=== PATIENT | female | born 1975 | race Caucasian/White ===

== ENCOUNTER 2024-12-13 00:28 | Day surgery (SDC) | payer MEDICARE, OTHER, SELFPAY ==
--- NOTE | 2024-12-08 14:30 | PM.IMHP ---
H&P: HPI History of Present Illness Date/Time: 12/08/24 14:30 Chief Complaint: incontinence Narrative: neurogenic bladder Review of Systems Review of Systems: All systems reviewed & are unremarkable except as noted in HPI and below Exam Narrative: limited mobility Assessment and Plan Assessment and plan (1) Uninhibited neurogenic bladder: Code(s): N31.9 - Neuromuscular dysfunction of bladder, unspecified Status: Acute Assessment and Plan: cysto/botox 100u (2) Reflex neurogenic bladder: Code(s): N31.1 - Reflex neuropathic bladder, not elsewhere classified Status: Acute
[2024-12-09 12:51] VITALS: BMI 33.4
--- NOTE | 2024-12-09 15:36 | PC.NURSE ---
[facility] has started construction of its new state of the art ER which will open Spring 2026. With this, we anticipate parking may be a challenge for some our surgical patients and families. Parking spaces are limited but are available for all Surgical, obstetrics, and ER patients sharing this lot. If you arrive and find you are having a hard time finding a parking space, please note that we understand the challenges, please drive around the hospital and park near Hospital Entrance 1. When you enter this entrance, you can ask a volunteer to direct or take you back to the surgical waiting area to check in. We appreciate everyone?s understanding of these expected challenges while we build for your future. Report to the Outpatient Waiting Room, entrance under the green pavilion [address], at time _10:15 AM on date ___12/13/24____. Planned Procedure Time: ___11:15 AM .? Time changes happen often and if your time is changed the preop area will call you the afternoon before. - You and your visitor will be asked to self-screen and do not enter if you have any COVID symptoms. Please call surgeon if you need to reschedule. - A mask is optional within the hospital at this time. MAY HAVE LIGHT BREAKFAST MORNING OF SURGERY Take only the following medications with a SIP of water on the morning of surgery: __ALL ROUTINE MEDICATIONS DO NOT STOP ANY OF YOUR OTHER PRESCRIPTION MEDICATIONS PRIOR TO SURGERY EXCEPT THE FOLLOWING Medications to discontinue per physician NONE Date to take last dose Please no make-up, nail citizen of the [place], hairspray, perfume, deodorant, or body powder the day of surgery.? No jewelry (including any body piercings) or valuables the day of surgery, leave them at home.? Please take a shower or bath the night before, or the morning of, surgery with an antibacterial soap.? Wear comfortable, loose fitting clothing.? Children are encouraged to wear pajamas. - Jewelry must be removed prior to entering the operating room.? Rings and piercings that are not removed may be cut off. - The hospital will not accept responsibility for valuables.? - Please leave all valuables, including medications, at home the day of surgery. If you are going home after surgery, a licensed class a regional truck driver must drive you home.? - NO public transportation without another adult if you receive anesthesia. - We recommend that an adult stay with you for 24 hours following discharge. - We also recommend that you do not drive, make important decision, drink alcoholic beverages, or take any drugs that were not prescribed by your health care provider for at least 24 hours after your discharge time. Follow any additional instructions given to you from your surgeon. FAXED instructions given to [facility] and asked if any additional questions and then verbalized understanding. Patient advised to call surgeon office or pre surgery nurse liaison [phone] if any additional questions.
--- OUTSIDE RECORDS SUMMARY | 2024-12-13 00:45 | XMS_ITS | Encounter Summary ---
Author Organization [facility] Address [address] [place] [address] Phone Care Team Providers Care Prestidigitator Name Role Phone Alejandro Desouza MD Primary Care Provider [phone] Dima Campo MD Unavailable David Rapp MD Unavailable Encounter Details Date Type Department Care Team (Late st Contact Info) Description 03/03/2023 Nursing Facility [facility] [address] [place] [address] Cl Tracy MD [address] [place] [address] Social History Tobacco Use Types Packs/Day Years Used Date Smoking Tobacco: Never Assessed Comments No Sex and Gender Information Value Date Recorded Sex Assigned at Not on file Legal Sex Female 4:47 PM CDT Gender Identity Not on file Sexual Orientation Not on file documented as of this encounter Plan of Treatment Not on file documented as of this encounter Visit Diagnoses Not on filedocumented in this encounter Care Teams Prestidigitator Relationship Specialty Start Date End Date Alejandro Desouza MD [address] [place] [address] PCP - General Family Medicine 06/07/22 Dima Campo MD #[address] [address] Consulting Physician Colon and Rectal Surgery 02/02/24 David Rapp MD [address] [place] [address] Consulting Physician Pulmonary Disease 04/23/24 documented as of this encounter
--- OUTSIDE RECORDS SUMMARY | 2024-12-13 00:45 | XMS_ITS | Encounter Summary ---
Author Organization [facility] Facility Care Team Providers Care Frit Coater Name Role Phone Vish Scott MD Primary Care Provider [phone] Mik Brown MD PhD Unavailable [phone] Ricardo Raymundo MD Unavailable [phone] Rufino Shaw MD Unavailable + [phone] Anisa Schaefer SUEDING AND BUFFING MACHINE OPERATOR Primary Care Provider [phone] Rika Lala MD Unavailable + [phone] Gatito Jones IMPORTER OR EXPORTER Unavailable Unavailabl Martha Donohue SUEDING AND BUFFING MACHINE OPERATOR Unavailable Dionne Dillon DPT Unavail able Florence Bryant RN Unavailable [phone] Keri Vila MA Unavailable [phone] Bala White MD Unavailable [phone] Rita Junior Unavailable [phone] Alejandro Desouza MD Primary Care Provider [phone] Tami Key MD, Silvio Thornton Unavailable [phone] Boliavr Meadows MD Primary Care Provider + [phone] Encounter Details Date Type Department Care Team (Latest Contact Info) Description 08/01/2017 Orders Only [facility] Provider, MD Francis [address] [place] [address] Social History Tobacco Use Types Packs/Day Years Used Date Smoking Tobacco: Never Smokeless Tobacco: Never Comments Unknown Sex and Gender Information Value Date Recorded Sex Assigned at Not on file Legal Sex Female 6:20 AM SNOWMOBILE MECHANIC Gender Identity Female 11/26/2019 8:57 AM CDT Sexual Orientation Straight 11/26/2019 8: 57 AM CDT documented as of this encounter Plan of Treatment Not on file documented as of this encounter Procedures Procedure Name Priority Date/Time Associated Diagnosis Comments SCAN - PATHOLOGY 08/01/2017 12:0 0 AM CDT documented in this encounter Results * SCAN - PATHOLOGY (08/01/2017 12:00 AM CDT) Narrative 08/01/2017 12:00 AM CDT Ordered by an unspecified provider. Historical Provider Final Res ult documented in this encounter Visit Diagnoses Not on filedocumented in this encounter Additional Health Concerns Infection Onset Date Last Indicated Resolved Time COVID: Recovered Comment:Patient meets COVID recovered criteria. Original positive testing date 11/20/19 at an outside facility. CHLOÉ Campbell 11/20/2019 02/13/2020 1 3:06 AM SNOWMOBILE MECHANIC COVID: Suspected 01/25/2020 01/25/2020 01/25/2020 10:50 PM SNOWMOBILE MECHANIC Respiratory Infection (ANTHONY), contact + droplet Comment:Automatically added due to negative COVID-19 result. 01/25/2020 01/25/2020 01/27/2020 10: 10 AM SNOWMOBILE MECHANIC COVID: Suspected 02/12/2020 02/12/2020 02/12/2020 11:04 AM SNOWMOBILE MECHANIC COVID19 Comment:Dr. Barclay, infectious disease specialist, believes positive resulted on 02/12/20 is still remaining from 11/20/19 positive and advises patient can be cleared from COVID isolation at this time. 02/12/2020 02/12/2020 02/13/2020 12:30 PM SNOWMOBILE MECHANIC COVID: Recovered Comment:Added based on recent COVID infection. 02/13/2020 03/27/2020 06/12/2020 3:05 AM C DT documented as of this encounter Care Teams Frit Coater Relationship Specialty Start Date End Date Vish Scott MD [address] [facility] [address] [place] [address] PCP - General 04/26/17 12/06/17 Anisa Schaefer NP [address] [facility] [address] [place] [address] PCP - General Family Medicine 12/07/17 01/24/19 Alejandro Desouza MD [address] [place] [address] PCP - General Internal Medicine 05/18/21 12/25/23 Bolivar Meadows MD [address] [place] [address] PCP - General Internal Medicine 12/26/23 Mik Brown MD PhD [address] [address] Referring Physician Neurology 12/07/17 Ricardo Raymundo MD [address] [place] [address] Referring Physician Neurology 12/07/17 Rufino Shaw MD [address] [place] [address] Referring Physician Pulmonary Disease 12/07/17 Rika Lala MD [address] [address] Referring Physician Obstetrics and Gynecology 12/07/17 Gatito Jones, IMPORTER OR EXPORTER [address] [address] Undercar Specialist 12/08/17 12/19/17 Martha Reed, SUEDING AND BUFFING MACHINE OPERATOR [address] [place] [address] [address] [place], [place] [address], [place] [address] Obstetrics and Gynecology 01/25/19 Dionne Dillon, PATT [address] [place] [address] [address] [facility] [place] [address] Physical Therapist Physical Therapy 07/25/19 08/21/19 Florence Bryant, JAMIL [address] [place] [address] [address] [place] [address] Financial Reporting Accountant 09/29/19 10/23/19 Keri Vila MA [address] [place] [address] [address] [place] [address] ACO Care Bad Work Gatherer 11/26/19 12/11/19 Bala White MD [address] [place] [address] [address] [place] [address] Consulting Physician Urology 12/04/19 Rita Junior [address] [place] [address] [address] [place] [address] ACO Care Bad Work Gatherer 02/21/20 03/05/20 [place] [address] [place] [address] Surgeon Orthopedic Surgery 03/31/22 documented as of this encounter
--- OUTSIDE RECORDS SUMMARY | 2024-12-13 00:45 | XMS_ITS | Encounter Summary ---
Author Organization [facility] Address [address] [place] [address] Phone Care Team Providers Care Financial Solutions Advisor Name Role Phone Alejandro Desouza MD Primary Care Provider [phone] Dima Campo MD Unavailable David Rapp MD Unavailable Encounter Details Date Type Department Care Team (Late st Contact Info) Description 10/28/2022 Nursing Facility [facility] [address] [place] [address] Cl Tracy MD [address] [place] [address] Social History Tobacco Use Types [...] on filedocumented in this encounter Care Teams Financial Solutions Advisor Relationship Specialty Start Date End Date Alejandro Desouza MD [address] [place] [address] PCP - General Family Medicine 06/07/22 Dima Campo MD #[address] [address] Consulting Physician Colon and Rectal Surgery 02/02/24 David Rapp MD [address] [place] [address] Consulting Physician Pulmonary Disease 04/23/24 documented as of this encounter
--- OUTSIDE RECORDS SUMMARY | 2024-12-13 00:45 | XMS_ITS | Encounter Summary ---
Author Organization [facility] Address [address] [place] [address] Phone Care Team Providers Care Editor City Name Role Phone Alejandro Weeks MD Primary Care Provider [phone] Dima Campo MD Unavailable David Rapp MD Unavailable Encounter Details Date Type Department Care Team (Late st Contact Info) Description 07/14/2022 Nursing Facility [facility] [address] [place] [address] Cl Tracy MD [address] [place] [address] Social History Tobacco Use Types Packs/Day Years Used Date Smoking Tobacco: Never Assessed Comments No Sex and Gender Information Value Date Recorded Sex Assigned at Not on file Legal Sex Female 4:47 PM CDT Gender Identity Not on file Sexual Orientation Not on file documented as of this encounter H&P Notes * Cl Tracy MD - 07/14/2022 11:59 PM CDT [facility] History and Physical Chief Complaint: LTC, fall, Multiple Sclerosis HPI: Martha Saenz is a 46 yo female who is at [facility] for long-term care. She fell at the facility on 06/07 and went to [facility] ED. Patient says her legs gave out and she has BLE weakness associated with multiple sclerosis. She was found to have a distal fibular metaphyseal fracture with mild separation and her left foot was placed in a hard boot and she returned to the SNF. At the time of this assessment, the patient was tearful and expressed frustration regarding negative past experiences with several doctors, nurses, and other healthcare staff members. She complained of bilateral knee pain and reported good appetite and regular bowel movements. I tried to have a discussion with the patient to encourage her to get out of her bed and room and move around the facility more as the exercise would help her mobility and help manage her obesity and being out of her room would also help her mental health. The patient refused all suggestions of ways to spend time of of bed/her room. I had a discussion with SNF staff to see if they could encourage more activity but staff reported that they have already been doing so and patient adamantly refuses. Medical Records Reviewed: [facility] records Allergies: NKA Past Medical History: Multiple sclerosis, ADHD, hypothyroidism, hx of DVT, iron deficiency anemia, PNP, seizures Surgical History: Colposcopy, pilonidal cyst resection Social History: Never smoked. Denies use of alcohol and illicit drugs. Review of Systems: All systems reviewed and are negative except what is mentioned in HPI. Physical Exam: Vital Signs: All vitals were reviewed in the facility EMR and are stable. Exam: General: Well developed, well nourished, in no distress, morbidly obese, incontinent Skin: Normal appearance, normal turgor, no rashes HEENT: Normocephalic, atraumatic, no flaring, multiple loose teeth Eyes: nonicteric, intact extra occular movement, PERRL Neck: normal, supple, no lymphadenopathy Heart: regular rate and rhythm, S1, S2 normal, no murmur, click, rub or gallop Lungs: clear to ausculation, normal respirations, normal precautions Abdominal: soft, non-tender; bowel sounds normal; no masses, no organomegaly : external genitalia normal in appearance Extremities: no deformities, joint mobility appears intact, no clubbing, LLE in hard boot Neuro: Non-focal, CN intact, sensory and motor intact Psychological: alert and oriented X3, tearful, depressed affect, Intact judgement and memory Data Review: Lab Results: Labs from recent hospitalization have been reviewed and are stable. I ordered an updated CBC, CMP, and UA to be collected at the SNF. Assessment/Plan: 1. Fall, generalized weakness and decreased mobilization. The patient is to receive PT and OT at the SNF to improve strength, balance, and mobility back to baseline. She will remain here for long-term care. 2. Distal fibular metaphyseal fracture with mild separation. LLE is in a hard boot and is NWB and should be kept elevated. Ice at 20 minute intervals per ortho. Continue pain management with prn [place]. Follow-up with ortho. 3. Multiple sclerosis. Patient suffers from associated frequent falls, weakness, and poor mobilization. Patient is unable to care fore herself at home and will remain at the facility for long-term longterm care. Follows with [facility]. 4. Morbid Obesity. BMI 34.97. The patient has been encouraged to lose weight through a healthier diet and exercise and has been educated on the associated health benefits. Improvement is not expectedat this time as she is very resistant to making any lifestyle changes. 5. Vitamin D Deficiency. Continue supplementation. 6. Seizure disorder. No recent seizures noted. Continue Lamictal. 7. Microcytic anemia. Baseline Hgb around 8.0 - 9.0. Monitor CBC periodically and advise transfusion if Hgb drops below 7.0. Continue ferrous sulfate. 8. Hypothyroidism. Well-controlled. Continue levothyroxine. Check TSH levels periodically. 9. PNP. Well-controlled. Continue gabapentin. 10. Hx of DVT. Patient is on oral anticoagulation with Eliquis. VTE Prophylaxis: Patient Already on Oral Anticoagulation with Eliquis Disposition and escalation or reduction of care: The patient is to receive post- acute care and complete PT and OT at the SNF to improve strength, balance, and mobility and will remain at this facility as a long-term senior care resident. Advance Care Planning: Aggregate flut-yo-fyda time, greater than 16 minutes was spent discussing end-of-life care planning with patient/family and/or Power of Armoured Car Escort. Discussed CPR, Intubation, treatment goals, and Quality of life/Intensity of care. Patient desires CPR-Full Treatment Ankit Cuellar, acting as a scribe, am personally taking down the notes in the presence of Dr. Cl Tracy M.D. Take no action on this note until reviewed and authenticated by the physician. By: ANKIT PANG, 07/14/2022 Primary Care Physician: ALEJADNRO WEEKS MD . I evaluated and examined the patient in the presence of scribe Ankit Pang and discussed the physical findings and clinical assessment with her and reviewed the medical records and notes above and agree with the content and details of the note. Cl Tracy MD documented in this encounter Plan of Treatment Not on file documented as of this encounter Visit Diagnoses Not on filedocumented in this encounter Care Teams Editor City Relationship Specialty Start Date End Date Alejandro Weeks MD [address] [place] [address] PCP - General Family Medicine 06/07/22 Dima Campo MD #[address] [address] Consulting Physician Colon and Rectal Surgery 02/02/24 David Rapp MD [address] [place] [address] Consulting Physician Pulmonary Disease 04/23/24 documented as of this encounter
--- OUTSIDE RECORDS SUMMARY | 2024-12-13 00:46 | XMS_ITS | Clinical Summary ---
Author Organization [facility] Address [address] [place] [address] Care Team Providers Care Registered Diet Technician Name Role Phone Day, Mik Stubbs MD PhD Unavailable [phone] Ricardo Raymundo MD Unavailable [phone] Rufino Shaw MD Unavailable [phone] Rika Lala MD Unavailable [phone] Martha Reed SHOP HELPER Unavailable Bala White MD Unavailable [phone] Tami Key MD, Silvio TRyann Unavailable [phone] Bolivar Meadows MD Primary Care Provider [phone] Allergies Active Allergy Reactions Criticality Noted Date Comments Codeine Hives,Itching Medium 04/01/2014 Medications albuterol HFA (PROVENTIL HFA,VENTOLIN HFA,PROAIR HFA) 90 mcg/actuation inhaler Inhale 2 puffs nightly 0 Active levonorgestrel (MIRENA) IUDIndications: 2017 1 each by intrauterine route once Active cholecalciferol (VITAMIN D-3) 1,000 unit capsuleIndicati ons:unknown Take 1 capsule (1,000 Units total) by mouth daily Active montelukast (SINGULAIR) 10 mg tablet TAKE 1 TABLET(10 MG) BY MOUTH EVERY NIGHT 30 tablet 2 0 Active Additional Information Patient taking differently: 10 mg oral Nightly, Reported on 12/10/2024 tiZANidine (ZANAFLEX) 2 mg tablet Take 0.5 tablets (1 mg total) by mouth nightly as needed for muscle spasms 30 tablet 5 0 Active lamoTRIgine (LaMICtal) 150 mg tablet Take 1 tablet (150 mg total) by mouth 2 (two) times a day 60 tablet 11 0 Active baclofen (LIORESAL) 10 mg tablet Take 1 tablet (10 mg total) by mouth 3 (three) times a day Active ferrous sulfate 325 mg (65 mg of elemental iron) tabletIndicatio ns:Iron Deficiency Anemia Take 1 tablet (325 mg total) by mouth 2 (two) times a day Active apixaban (ELIQUIS) 5 mg tabletIndicatio ns:Venous Thrombosis,deep venous thrombosis Take 1 tablet (5 mg total) by mouth every 12 (twelve) hours 60 tablet 1 Active levothyroxine (SYNTHROID) 100 mcg tablet TAKE 1 TABLET(100 MCG) BY MOUTH DAILY 90 tablet 1 Active ofatumumab (Kesimpta Pen) 20 mg/0.4 mL pen injector Inject 20 mg under the skin every 30 (thirty) days Active Myrbetriq 25 mg tablet extended release 24 hr 2 Active PARoxetine (PAXIL) 20 mg tablet 2 Active triamcinolone (KENALOG) 0.1 % ointment Apply topically 2 (two) times a day 30 g 1 2 Active clonazePAM (KlonoPIN) 0.5 mg tablet Take 1 tablet (0.5 mg total) by mouth daily 30 tablet 2 2 Active pregabalin (Lyrica) 100 mg capsule Take 1 capsule (100 mg total) by mouth 2 (two) times a day 60 capsule 2 3 Active HYDROcodone-marguerite taminophen (NORCO) 5-325 mg per tablet 4 Active famotidine (PEPCID) 20 mg tablet 4 Active ciprofloxacin (CIPRO) 500 mg tablet 4 Active budesonide-form oteroL (SYMBICORT) 80-4.5 mcg/actuation inhaler Inhale 2 puffs 2 (two) times a day Rinse mouth with water after use. Do not swallow. Active oxyBUTYnin XL (DITROPAN-XL) 10 mg 24 hr tablet 4 Active loperamide (IMODIUM A-D) 2 mg tablet Take 1 tablet (2 mg total) by mouth 4 (four) times a day as needed for diarrhea Active polyethylene glycol (MIRALAX) 17 gram/dose bulk powder Take 17 g by mouth daily Active benzonatate (TESSALON) 200 mg capsule Take 1 capsule (200 mg total) by mouth 3 (three) times a day as needed for cough Active cetirizine (ZyrTEC) 10 mg chewable tablet Take 1 tablet (10 mg total) by mouth daily Active docusate sodium (COLACE) 100 mg capsuleIndicati ons:constipatio n Take 1 capsule (100 mg total) by mouth 2 (two) times a day Active guaiFENesin (ROBITUSSIN) syrup 100 mg/5 mL Take 10 mL (200 mg total) by mouth every 4 (four) hours as needed Active lidocaine (LIDODERM) 5 % Place 1 patch on the skin daily Active vitamin B complex (B COMPLEX 1 ORAL) Take 1 tablet by mouth daily Active ergocalciferol (VITAMIN D) 50,000 unit capsule Take 1 capsule (50,000 Units total) by mouth daily Active multivitamin tablet Take 1 tablet by mouth daily Active magnesium hydroxide (MILK OF MAGNESIA) suspension 400 mg/5 mL Take 30 mL by mouth daily as needed Active nystatin powder Apply 1 Application topically 3 (three) times a day Active naproxen (NAPROSYN) 500 mg tablet Take 1 tablet (500 mg total) by mouth 2 (two) times a day with meals 30 tablet 5 Active mupirocin (BACTROBAN) 2 % ointmentIndicat ions:Abscess Apply topically as needed (use to any area of infection PRN) 22 g 5 Active Active Problems Problem Noted Date Diagnosed Date Sprain of left knee 09/10/2024 Closed fracture of proximal end of right fibula with delayed healing 09/10/2024 Medication monitoring encounter 07/12/2024 History of COVID-19 07/12/2024 C5,6 Severe foraminal stenos is of cervical region 02/2023, asymptomatic 12/26/2023 Epilepsy 07/20/2023 Overview (07/20/2023): EPILEPSY W/O INTRACT EPILEPSY Bilateral leg edema 07/17/2023 Immunosuppression due to drug therapy 06/19/2022 Dysesthesia of multiple sites 06/19/2022 Closed fracture of part of tibia 06/19/2022 Other chronic pain 04/14/2022 Sacroiliitis 03/31/2022 Attention-deficit hyperactivity disorder, unspec ified type 02/21/2021 Hereditary ataxia, 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/2021 Major depressive disorder, single episode, unspe cified 02/21/2021 Other seizures 02/21/2021 Hypothyroidism, 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/2021 Anemia, 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/2021 Acute and chronic respiratory failure with hypox ia 02/21/2021 Obesity, 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/2021 Fever 02/03/2020 Hypoglycemia 02/02/2020 Hypophosphatemia 01/29/2020 Single subsegmental pulmonar y embolism without acute cor pulmonale 01/26/2020 Anemia 01/24/2020 Lymphocytopenia 01/24/2020 Pneumonia 01/23/2020 Right ankle sprain 11/19/2019 Assessment & Plan (12/04/2019 9:19 AM CDT): Continue PT and rehab at [facility]. Pt is working with social scientist and protective services on housing that is wheelchair accessible so she will be able to get her wheelchair into the bathroom and in turn, have less falls. If [facility] needs any further orders for PT or treatment, have them faxed to our office. Assessment & Plan (11/19/2019 1:32 AM CDT): Patient unable to bear weight at this time due to pain. No fracture noted on x- ray. Ortho was consulted. Continue p.r.n. Sh[place]. Will consult PT and OT. compensator worker was also consulted for placement. Will hold off on COVID screen until we have an ETA for discharge so as not to have to repeat the test if it is greater than 72 hours. Class 1 obesity due to exces s calories with serious comorbidity and body mass index (BMI) of 31.0 to 31.9 in adult 11/19/2019 Assessment & Plan (12/04/2019 8:36 AM CDT): HPI: Condition is stable A&P: Healthy, low carbohydrate lifestyle and exercise for 150min/week recommended Substitutions: [employer] carries a zero net carb bread If you are looking for whole potatoes, like to use in soup or new potato shape/flavor, radishes are a great replacement If you are looking for mashed potatoes, riced cauliflower in the frozen bag section are a great replacement For pasta, try using zucchini noodles, lay them out on a cookie sheet and pat dry with a tea towel to try to remove as much moisture as possible. Heat your pasta sauce on the stove and put the noodles in for 30-45 seconds. If you leave them in much longer they will become mushy [place] and/or coconut flour instead of regular flour For pizza dough, try fathead pizza dough recipe online. To get a crispy crust, bake on one side for 8-12 min, then flip over and bake on the other side for 8-12 min, then put toppings on and bake until the cheese on top of pizza melts chaffles recipe online For ice cream, try the brand Enlightened Use Pinterest for recipe ideas. Type in low carb... Mood disorder 10/01/2019 Wheelchair dependence 08/08/2019 Assessment & Plan (12/04/2019 9:20 AM CDT): Continue PT and rehab at [facility]. Pt is working with social scientist and protective services on housing that is wheelchair accessible so she will be able to get her wheelchair into the bathroom and in turn, have less falls. If [facility] needs any further orders for PT or treatment, have them faxed to our office. Assessment & Plan (11/19/2019 1:20 AM CDT): Patient otherwise has difficulty ambulating and frequently falls. Abnormal Pap smear of cervix 02/28/2019 Overview (04/10/2019): 06/2017: ASCUS, + HR HPV 07/2017: colpo wnl 02/2019: LSIL, - HR HPV 03/2019: colpo wnl Repeat co-testing in 12 m Acquired hypothyroidism 01/25/2019 Assessment & Plan (11/19/2019 1:23 AM CDT): Continue levothyroxine Assessment & Plan (01/25/2019 12:04 PM VENTILATING ENGINEER): Discussed/ordered labs, Condition is stable, encouraged healthy, low carbohydrate lifestyle and at least 150min/week of exercise, pt is completely out of levothyroxine at this time. We will refill the 100mcg and await labs Paraparesis 01/23/2019 Assessment & Plan (11/19/2019 1:21 AM CDT): Continue Lyrica Moderate persistent asthma without complication 10/16/2018 Assessment & Plan (11/19/2019 1:23 AM CDT): Continue Singulair and inhalers Assessment & Plan (01/25/2019 10:34 AM VENTILATING ENGINEER): Pt taking breo twice daily Uses albuterol as needed. She doesn't use it often. Please consider the albuterol as a rescue only medication. If needing the albuterol more than 2xwk, please contact office. Assessment & Plan (10/16/2018 2:12 PM CDT): Patient wants to switch from Advair to Breo because it is once a day . I will start her on Breo Ellipta. Continue with Singulair. Continue with p.r.n. Albuterol inhaler. Patient will benefit from albuterol nebulization treatments 4 times a day. He discussed with the patient and she agrees to use nebulization treatments at home. Will arrange for nebulization machine. Spasticity 05/24/2018 Assessment & Plan (11/19/2019 1:23 AM CDT): Continue baclofen and p.r.n. tizanidine Vitamin D deficiency 05/24/2018 Assessment & Plan (01/25/2019 10:40 AM VENTILATING ENGINEER): Discussed/ordered labs, Condition is worsening, encouraged healthy, low carbohydrate lifestyle and at least 150min/week of exercise, she has been off of vit d for quite a while-about 1 yr. She just bought some OTC vit d3 daily in the last month High risk medication use 05/24/2018 Abnormal MRI 05/24/2018 Recurrent UTI 04/13/2018 Assessment & Plan (11/19/2019 1:21 AM CDT): Continue nitrofurantoin Assessment & Plan (01/25/2019 10:41 AM VENTILATING ENGINEER): Please take the nitrofurantoin twice daily x 3 days, then take once daily every day for prevention Arthralgia of hip 03/28/2016 Memory impairment 12/16/2014 Neurogenic bladder disorder 08/19/2014 Mixed anxiety and depressive disorder 04/22/2014 Assessment & Plan (01/25/2019 10:45 AM VENTILATING ENGINEER): Pt taking cymbalta 60mg daily She doesn't have custody of children, both parents are gone, she has chronic illness. She has seen counselors but doesn't feel it helps She does not have suicidal thoughts Abnormality of gait and mobility 04/01/2014 Assessment & Plan (12/04/2019 9:20 AM CDT): Continue PT and rehab at [facility]. Pt is working with social scientist and protective services on housing that is wheelchair accessible so she will be able to get her wheelchair into the bathroom and in turn, have less falls. If [facility] needs any further orders for PT or treatment, have them faxed to our office. Chronic fatigue disorder 04/01/2014 Right-sided low back pain without sciatica 04/01 Generalized epilepsy 03/25/2014 Assessment & Plan (11/19/2019 1:23 AM CDT): Continue lamotrigine Assessment & Plan (01/25/2019 10:48 AM VENTILATING ENGINEER): Patient taking lamictal 100mg every morning and 150mg at bedtime Her seizures are more like tremors, seizures started in 2004 when she was having her daughter due to elevated BP She has a feeling in her head when it gets ready to start. Then she steps and her leg has tremor. The lamictal helps Multiple sclerosis 08/16/2011 Assessment & Plan (12/04/2019 9:20 AM CDT): Continue PT and rehab at [facility]. Pt is working with social scientist and protective services on housing that is wheelchair accessible so she will be able to get her wheelchair into the bathroom and in turn, have less falls. If [facility] needs any further orders for PT or treatment, have them faxed to our office. Keep follow up with neurology Assessment & Plan (11/19/2019 1:21 AM CDT): Patient follows with neurology at [facility] Assessment & Plan (01/25/2019 10:29 AM VENTILATING ENGINEER): Pt sees neurology. Patient has electric wheelchair that she uses at home. She uses manual wheelchair when she has to leave the house. She has excessive fatigue even with daily activities moving around. Pt uses baclofen 10mg two to three times daily, ocrevus twice a year, pregaalin 50mg twice daily, tizanidine 1mg at bedtime as needed, tramadol 50mg twice daily. She receives these meds from neurology. Rheumatoid arthritis Overview (01/24/2020): Rheumatoid arthritis - Possible (Added by TW Conv) Acute respiratory failure with hypoxia Resolved Problems Problem Noted Date Diagnosed Date Resolved Date Depressive disorder, atypical 04/14/2022 12/26/2023 Pressure injury of skin of buttock 03/10/2020 10/06/2020 Hyponatremia 01/24/2020 01/29/2020 Hypokalemia 01/24/2020 01/29/2020 Moderate persistent asthma w ith acute exacerbation 01/24/2020 10/06/2020 Falls frequently 08/08/2019 10/06/2020 Assessment & Plan (12/04/2019 9:19 AM CDT): Continue PT and rehab at [facility]. Pt is working with social scientist and protective services on housing that is wheelchair accessible so she will be able to get her wheelchair into the bathroom and in turn, have less falls. If [facility] needs any further orders for PT or treatment, have them faxed to our office. Assessment & Plan (11/19/2019 1:23 AM CDT): Up with assistance and fall precautions BMI 29.0-29.9,adult 01/25/2019 12/04/19 Assessment & Plan (01/25/2019 10:49 AM VENTILATING ENGINEER): Healthy, low carbohydrate lifestyle and exercise for 150min/week recommended Encounters Date Type Department Care Team Description 12/10/2024 9:50 AM CDT Lab [facility] [address] [place] [phone] Chronic fatigue disorder; Sacroiliitis; Recurrent UTI; Immunosuppression due to drug therapy; High risk medication use; Abnormality of gait and mobility 12/10/2024 8:15 AM CDT Office Visit [facility] Multiple Sclerosis [address] [place] [address] [address] [place] [address] Ricardo Raymundo MD Chronic fatigue disorder (Primary Dx); Sacroiliitis; Recurrent UTI; Immunosuppression due to drug therapy; High risk medication use; Abnormality of gait and mobility 11/06/2024 11:30 AM CDT Office Visit [facility] Surgery [address] [place] [address] 6th [place] [address] [place] [address] Dianne Townsend NP Abscess (Primary Dx) 10/03/2024 12:25 PM CDT - 10/03/2024 11:59 PM CDT Hospital Encounter [facility] [address] [place] [id number] Khushboo Jeffries MD Abscess Discharge Disposition: Discharge to home or self care 10/03/2024 12:15 PM CDT Office Visit [facility] Surgery [facility] 6th [place] [address] [place] [phone] Khushboo Jeffries MD Abscess (Primary Dx) 09/26/2024 11:10 AM CDT Office Visit [facility] [address] [facility] [address] [place] [phone] Erica Beaulieu DO Encounter for annual routine gynecological examination (Primary Dx); Encounter for routine checking of intrauterine contraceptive device (IUD) 09/21/2024 Results Follow-Up [facility] Emergency Department [address] [place] [address] Kailash Gardiner PA Aerobic culture and gram stain Abscess Finger 09/20/2024 Telephone [facility] [id number] Medical Office Building [address] [place] [address] Ansley Du MD 09/19/2024 8:45 PM CDT - 09/19/2024 11:59 PM CDT Hospital Encounter [facility] Emergency, Room R Discharge Disposition: Discharge to home or self care 09/19/2024 1:57 PM CDT - 09/19/2024 8:45 PM CDT Emergency [facility] Emergency Department [address] [place] [address] Abscess (Primary Dx) Discharge Disposition: Discharge to home or self care 09/17/2024 10:15 AM CDT [facility]medicine [facility] 7th [place] [phone] Angela Jon, TICKETER Multiple sclerosis (HCC) (Primary Dx); Immunosuppression due to drug therapy; High risk medication use; Medication monitoring encounter; Abnormal MRI; Spasticity; Abnormality of gait and mobility; Wheelchair dependence; Neurogenic bladder disorder; Chronic fatigue disorder; Generalized epilepsy (HCC); Mood disorder; History of COVID-19 from Last 3 Months Immunizations Immunization Administration Dates Next Due Flucelvax Influenza Quad 11/20/2018 Influenza, Quadrivalent, Berta l Culture-based MDCK, Antibiotic Free, Intramuscular 11/30/2022 Influenza, Quadrivalent, Berta l Culture-based MDCK, Preservative Free, Antibiotic Free, Intramuscular 11/20/2018,11/20/2018 Influenza, Quadrivalent, Spl it, Preservative Free, Intramuscular 11/22/2019 Influenza, Trivalent, Adjuva nted, Intramuscular 12/22/2023 Influenza, Unspecified 11/20/2018,2018,11/17/2017(Defer red: Patient Refused),11/17/2017(Deferred: Patient Refused),11/17/2017(Deferred: Patient Refused),11/17/2017(Deferred: Patient Refused),03/15/2016 Pneumococcal Conjugate Pcv20 11/16/2022 Tdap 10/25/2016,10/24/2016 Surgical History Surgery Date Site/Laterality Comments PILONIDAL CYST RESECTION Pilonidal Cyst Resection - (Added by TW Conv) COLPOSCOPY 02/13/2017 - 02/12/2018 Medical History Medical History Date Comments Personal history of other en docrine, nutritional and metabolic disease History of hypothyro idism - (Added by TW Conv) Personal history of other sp ecified conditions History of headache - migra ine that lasted 3 months, but does not have ongoing migraine headaches now, only occasional headaches with resolve with OTC pain meds (Added by TW Conv) Rheumatoid arthritis (HCC) Rheum atoid arthritis - Possible (Added by TW Conv) Attention-deficit hyperactivity disorder Attention-deficit/hyperactivity disorder - Probable (Added by TW Conv) Multiple sclerosis H/O abnormal cervical Papanicolaou smear 2017 = ASCUS, + HR HPV Breathing difficulty Incontinence Joint pain Cancer of skin of neck 2023 w 1 week of radiation History of radiation therapy 2023 ski n ca on back of neck Seizures (HCC) 2005 Depression Asthma 2016 Thyroid disease 2005 Anxiety Family History Medical History Relation Name Comments Arthritis Father Hussein Diabetes Father Hussein Heart attack Father Hussein Heart disease Father Hussein Neuropathy Father Hussein Alcohol abuse Father's Brother Chet Breast cancer Maternal Grandmother Fabienne Cancer Maternal Grandmother Fabienne Cancer Mother Wilda Heart attack Mother's Brother Gene Stroke Sister 1 Tyann Stroke Syndrome - (Added by TW Conv) Rashes / Skin problems Sister 2 Lynda Stroke Sister 3 Tiffanie Miscarriages / Stillbirths Sister 4 Tonya Ovarian cancer Neg Hx Thyroid cancer Neg Hx Relation Name Status Comments Father Hussein Father's Brother Chet Alive Maternal Grandmother Fabienne Mother Wilda Mother's Brother Gene Alive Sister 1 Tyann Sister 2 Lynda Alive Sister 3 Tiffanie Alive Sister 4 Tonya Alive Social History Tobacco Use Types Packs/Day Years Used Date Smoking Tobacco: Never Passive Smoke Exposure: Yes Smokeless Tobacco: Never Tobacco Cessation:Counseling Given: Not Answered Alcohol Use Standard Drinks/Week Comments No 0 (1 standard drink = 0.6 oz pur e alcohol) PHQ-2 Answer Date Recorded PHQ-2 Total Score (If total score is 3 or more points, staff should administer the PHQ-9) 0 01/28/2020 Personal Safety Answer Date Recorded Have you ever been in or are you currently in a harmful physical or emotional relationship or is someone making you feel afraid or unsafe? Denies 09/19/2024 Comments No Sex and Gender Information Value Date Recorded Sex Assigned at Not on file Legal Sex Female 6:20 AM VENTILATING ENGINEER Gender Identity Female 11/26/2019 8:57 AM CDT Sexual Orientation Straight 11/26/2019 8: 57 AM CDT Occupation Industry Job Start Date Job End Date None Not on file Not on file Not on file Obstetrics History Para Term AB IAB SAB Ectopic Multiple Livin g Live Births 2 2 2 0 0 0 0 0 0 2 2 Date Outcome GA Total Labor Labor/2nd/3rd Weight Sex Type Anes PTL Maria Isabel A1 A5 Name Clin 2004 Term 3.175 kg (7 lb) F Vag-S pont Living 2005 Term 3.629 kg (8 lb) M Vag-S pont Living Last Filed Vital Signs Vital Sign Reading Time Taken Comments Blood Pressure 119/80 12/10/2024 9:21 AM CDT Pulse 60 12/10/2024 9:21 AM CDT Temperature 37.1 C (98.8 F) 09/19/2024 1:56 PM CDT Respiratory Rate 18 09/19/2024 1:56 PM CDT Oxygen Saturation 97% 09/19/2024 4:15 PM CDT Inhaled Oxygen Concentration - - Weight 100.2 kg (221 lb) 12/10/2024 9:21 AM CDT Height 172.7 cm (5' 8) 12/10/2024 9:21 AM CDT Body Mass Index 33.6 12/10/2024 9:21 AM CDT Plan of Treatment Health Maintenance Due Date Last Done Comments Colon Cancer Screening-Colonoscopy 1976 Hepatitis C Screening 1976 Hepatitis B Screening 1994 Zoster Vaccine (1 of 2) 11/19/1995 Depression Screening 01/22/2021 01/23/2020, 2019, 03/08/2018, Additional history exists Cervical Cancer Screening 12/07/20232022, 12/06/2022, 04/13/2021, Additional history exists Covid-19 Vaccine (10 - Mixed Product risk season) 2024 12/22/2023, 12/15/2022, 06/24/2022, Additional history exists Influenza Vaccine (#1) 2024 , 11/30/2022, 11/22/2019, Additional history exists Breast Cancer Screening-Mammogram 08/27/2025 08/27/2024, 04/26/2022, 04/14/2021, Additional history exists Regular Well Visit/Exam 18-64 09/26/2025, 12/06/2022, 04/13/2021, Additional history exists DTaP/Tdap/Td Vaccine (3 - Td or Tdap) 10/25/2026 10/25/2016, 10/24/2016 Pneumococcal vaccine <65 Completed 11/16/2022 Goals Goal Patient Goal Type Associated Problems Recent Progress Patient-Stated? Author CCM Chronic Pain Care Plan Chronic Care Management No Sada Jung, RN Note: Problem: Chronic Pain Goals: 1. Minimize further functional decline 2. Maximize quality of life 3. Control pain Strategies: - Activity/exercise program recommendation - Conservative stepwise pain medicine strategy with multi-disciplinary approach - Recommend healthy lifestyle strategies and compensatory methods as needed Procedures Procedure Name Priority Date/Time Associated Diagnosis Comments URINALYSIS, MICROSCOPIC ONLY Routine 12/10/2024 9:59 AM CDT IGM Routine 12/10/2024 9:59 AM CDT IGA Routine 12/10/2024 9:59 AM CDT IGG Routine 12/10/2024 9:59 AM CDT URINE CULTURE Routine 12/10/2024 9:59 AM CDT URINALYSIS AND REFLEX TO MICROSCOPIC AND CULTURE Routine 12/10/2024 9:59 AM CDT EGFR Routine 12/10/2024 9:58 AM CDT Chronic fatigue disorder Sacroiliitis Recurrent UTI Immunosuppression due to drug therapy High risk medication use Abnormality of gait and mobility DIFFERENTIAL AUTO Routine 12/10/2024 9:5 8 AM CDT Chronic fatigue disorder Sacroiliitis Recurrent UTI Immunosuppression due to drug therapy High risk medication use Abnormality of gait and mobility COMPREHENSIVE METABOLIC PANEL Routine 12/10/2024 9:58 AM CDT Chronic fatigue disorder Sacroiliitis Recurrent UTI Immunosuppression due to drug therapy High risk medication use Abnormality of gait and mobility CBC WITH AUTO DIFFERENTIAL Routine 12/10/2024 9:58 AM CDT Chronic fatigue disorder Sacroiliitis Recurrent UTI Immunosuppression due to drug therapy High risk medication use Abnormality of gait and mobility IMMUNE COMPETENCE Routine 12/10/2024 9:5 8 AM CDT Chronic fatigue disorder Sacroiliitis Recurrent UTI Immunosuppression due to drug therapy High risk medication use Abnormality of gait and mobility XR FINGER 4TH RING LEFT Schedule Routine, Read Routine (OP Routine) 10/03/2024 12:37 PM CDT Abscess ED INCISION AND DRAINAGE Routine 09/19/2024 6:52 PM CDT AEROBIC CULTURE AND GRAM STAIN Routine 09/19/2024 5:01 PM CDT EGFR STAT 09/19/2024 2:37 PM CDT DIFFERENTIAL AUTO STAT 09/19/2024 2:3 7 PM CDT SEPSIS LACTATE WITH REFLEX Routine 09/19/2024 2:37 PM CDT COMPREHENSIVE METABOLIC PANEL STAT 09/19/2024 2:37 PM CDT CBC WITH AUTO DIFFERENTIAL STAT 09/19/2024 2:37 PM CDT BLOOD CULTURE STAT 09/19/2024 2:37 PM CDT BLOOD CULTURE STAT 09/19/2024 2:37 PM CDT XR HAND LEFT 3 OR MORE VIEWS ED 09/19/2024 2:31 PM CDT SCREENING MAMMOGRAM BILATERAL W BRIAN Schedule Routine, Read Routine (OP Routine) 08/27/2024 9:11 AM CDT Screening mammogram, encounter for PAP AND HIGH RISK HPV, REFLEX TO GENOTYPING Routine 12/06/2022 10:50 AM CDT Screening for malignant neoplasm of cervix from Last 3 Months or Most Recently Relevant to Health Maintenance Results * (ABNORMAL) Urinalysis reflex to microscopic and culture Urine (12/10/2024 9:59 AM CDT) Color, ur Straw Yellow Clarity, ur Clear Clear [facility] Specific gravity, ur 1.013 1.003 - 1.030 [facility] pH, urine 6.5 [facility] Comment: Interpretive Data U rine pH is affected by diet, medications, systemic acid-base disturbances, and renal tubular function. pH may affect urinary stone formation. For example, urine pH below 6.0 may help reduce the tendency for calcium phosphate stones and pH greater than 6.0 may reduce the tendency for uric acid stone formation. Source: Dale Gorb Current Interpretive Data was last revised on 2017 Protein, ur ql Negative Negative [facility] Glucose, ur ql Negative Negative [facility] Ketones, ur Negative Negative [facility] Bilirubin, ur Negative Negative [facility] Blood, ur Trace(A) Negative [facility] Urobilinogen, ur <2.0 <2.0 mg/dL [facility] Nitrite, ur Negative Negative [facility] Leukocyte esterase, ur 3+(A) Negative [facility] UA reflex comment Reflex to microscopic UA will be performed. [facility] Urine 12/10/2024 9:59 AM CDT 12/10/2024 10:32 AM CDT Ricardo Raymundo MD LAB MICROBIOLOGY - GENERAL ORDERABLES Final Result Performing Organization Address [facility] Co de Phone Number [facility] Department [place] [address] * (ABNORMAL) Urinalysis, microscopic only (12/10/2024 9:59 AM CDT) WBC, ur 21-50(A) 0 - 5 /HPF RBC, ur 3-5(A) 0 - 2 /HPF [facility] Epithelial cells, squamous, ur 1-5 0 - 5 /HPF [facility] Epithelial cells, renal, ur 1-5(A) 0 - 0 /HPF [facility] Bacteria, ur 2+(A) [facility] Mucous, ur Present(A) [facility] Culture Reflex Comment Reflex to urine culture will be performed. [facility] Urine 12/10/2024 9:59 AM CDT 12/10/2024 10:36 AM CDT us Ricardo Raymundo MD LAB URINE ORDERABLES Final Result Performing Organization Address [facility] Co de Phone Number [facility] Department [place] [address] * Urine culture Urine (12/10/2024 9:59 AM CDT) Report Final Report: Less than 100,000 colonies/mL (clinically insignificant growth based on current clinical standards) Organism (CLINICALLY INSIGNIFICANT GROWTH [facility] Urine 12/10/2024 9:59 AM CDT 12/10/2024 1:19 PM CDT Narrative [facility] 12/11/2024 3:02 PM CDT Urine culture reflexed based upon urinalysis results. Testing performed by [facility] ([phone]) Ricardo Raymundo MD LAB MICROBIOLOGY - GENERAL ORDERABLES Final Result Performing Organization Address [facility] de Phone Number [facility] [place] [address] * (ABNORMAL) IgA (12/10/2024 9:59 AM CDT) Immunoglobulin A 25(L) 70 - 400 mg/dL Blood 12/10/2024 9:59 AM CDT 12/10/2024 10:35 AM CDT Ricardo Raymundo MD LAB BLOOD ORDERABLES Final Result Performing Organization Address [facility] de Phone Number [facility] [place] [address] * IgM (12/10/2024 9:59 AM CDT) Pathologist [facility] Immunoglobulin M 74 40 - 230 mg/dL Blood 12/10/2024 9:59 AM CDT 12/10/2024 10:35 AM CDT Ricardo Raymundo MD LAB BLOOD ORDERABLES Final Result Performing Organization Address [facility] [place] [address] * (ABNORMAL) IgG (12/10/2024 9:59 AM CDT) Immunoglobulin G 522(L) 700 - 1,600 mg/dL Blood 12/10/2024 9:59 AM CDT 12/10/2024 10:35 AM CDT us Ricardo Raymundo MD LAB BLOOD ORDERABLES Final Result Performing Organization Address City/[facility] Co de Phone Number [facility] [place] [address] * eGFR (12/10/2024 9:58 AM CDT) eGFR >90 >=60 mL/min/1. 73 m2 Comment: Interpretive Data Reference Interval Normal >/= 90 mL/min/1.73m2 Mildly decreased* 60 - 89 mL/min/1.73m2 Mildly to moderately decreased 45 - 59 mL/min/1.73m2 Moderately to severely decreased 30 - 44 mL/min/1.73m2 Severely decreased 15 - 29 mL/min/1.73m2 Kidney Failure < 15 mL/min/1.73m2 *Relative to young adult level Estimated glomerular filtration rate is determined by the 2020 CKD-EPI equation recommended by the National Kidney Foundation (A Unifying Approach to GFR Estimation: Recommendations of the NKF-ASK Task Force on Reassessing the Inclusion of Race in Diagnosing Kidney Disease, JASN 2020). The CKD-EPI equation should not be used for patients with unstable renal function and has not been validated in children and those over 70. Current interpretive data was last reviewed 2020. Blood 12/10/2024 9:58 AM CDT 12/10/2024 10:34 AM CDT us Ricardo Raymundo MD LAB BLOOD ORDERABLES Final Result Performing Organization Address City/[facility] Co de Phone Number [facility]HELSEA LUJAN [facility] Department [place] [address] * Differential, auto (12/10/2024 9:58 AM CDT) Neutrophil abs 5.94 1.50 - 6.50 K/cumm Imm gran abs 0.05 0.00 - 0.10 K/cumm [facility] Lymphocyte abs 1.63 0.80 - 3.30 K/cumm [facility] Monocyte abs 0.49 0.20 - 0.80 K/cumm [facility] Eosinophil abs 0.06 0.00 - 0.50 K/cumm [facility] Basophil abs 0.02 0.00 - 0.10 K/cumm [facility] Neutrophil pct 72.6 % [facility] Comment: Interpretive Data Percent cell count reference ranges are not reported, since discordance with absolute values may lead to misinterpretation of CBC data. Current Interpretive Data was last revised on 2017. Imm gran pct 0.6 % [facility] Comment: Interpretive Data Percent cell count reference ranges are not reported, since discordance with absolute values may lead to misinterpretation of CBC data. Current Interpretive Data was last revised on 2017. Lymphocyte pct 19.9 % [facility] Comment: Interpretive Data Percent cell count reference ranges are not reported, since discordance with absolute values may lead to misinterpretation of CBC data. Current Interpretive Data was last revised on 2017. Monocyte pct 6.0 % [facility] Comment: Interpretive Data Percent cell count reference ranges are not reported, since discordance with absolute values may lead to misinterpretation of CBC data. Current Interpretive Data was last revised on 2017. Eosinophil pct 0.7 % [facility] Comment: Interpretive Data Percent cell count reference ranges are not reported, since discordance with absolute values may lead to misinterpretation of CBC data. Current Interpretive Data was last revised on 2017. Basophil pct 0.2 % [facility] Comment: Interpretive Data Percent cell count reference ranges are not reported, since discordance with absolute values may lead to misinterpretation of CBC data. Current Interpretive Data was last revised on 2017. Blood 12/10/2024 9:58 AM CDT 12/10/2024 10:19 AM CDT us Ricardo Raymundo MD LAB BLOOD ORDERABLES Final Result [facility] Department [place] [address] * (ABNORMAL) Immune competence (12/10/2024 9:58 AM CDT) CD3 pct 85 60 - 88 % CD3 Absolute 1,381 661 - 1,963 cells/mcL [facility] CD4 pct 47 31 - 64 % [facility] CD4 Absolute 771 365 - 1,294 cells/mcL [facility] CD8 pct 37 12 - 40 % [facility] CD8 Absolute 598 187 - 781 cells/mcL [facility] CD19 pct 0(L) 6 - 25 % [facility] CD19 Absolute <25(L) 86 - 488 cells/mcL [facility] Comment:Verified. [id number] pct 14 5 - 25 % [facility] [id number] Absolute 224 76 - 467 cells/mcL [facility] CD4/CD8 ratio 1.3 0.9 - 4.4 [facility] Blood 12/10/2024 9:58 AM CDT 12/10/2024 10:19 AM CDT Ricardo Raymundo MD LAB BLOOD ORDERABLES Final Result [facility] One [facility] Department [place] [address] * CBC with auto differential (12/10/2024 9:58 AM CDT) [facility] WBC 8.19 3.80 - 9.90 K/cumm Hgb 13.2 11.9 - 15.5 g/dL [facility] Hct 40.6 35.6 - 45.5 % [facility] Plt 234 150 - 400 K/cumm [facility] MPV 11.1 9.1 - 12.3 fL [facility] RBC 4.49 3.90 - 5.20 M/cumm [facility] MCV 90.4 81.3 - 96.4 fL [facility] MCH 29.4 27.1 - 33.3 pg [facility] MCHC 32.5 32.3 - 35.7 g/dL [facility] RDW CV 14.4 11.1 - 14.9 % [facility] RDW SD 48.0 35.7 - 48.1 fL [facility] NRBC abs 0.00 0.00 - 0.01 K/cumm [facility] Blood 12/10/2024 9:58 AM CDT 12/10/2024 10:19 AM CDT us Ricardo Raymundo MD LAB BLOOD ORDERABLES Final Result [facility] Department [place] [address] * Comprehensive metabolic panel (12/10/2024 9:58 AM CDT) Sodium 142 135 - 145 mmol/L Potassium, pl 3.8 3.3 - 4.9 mmol/L [facility] Chloride 102 97 - 110 mmol/L [facility] CO2 27 22 - 32 mmol/L [facility] Anion gap 13 2 - 15 mmol/L [facility] BUN 11 6 - 25 mg/dL [facility] Creatinine 0.68 0.60 - 1.10 mg/dL [facility] Glucose 94 70 - 199 mg/dL [facility] Comment: Interpretive Data Fasting glucose >/= 126 mg/dl is diagnostic for diabetes. Fasting is defined as no caloric intake for at least 8 hours. Fasting glucose between 100 mg/dl to 125 mg/dl is diagnostic of prediabetes. In a patient with classic symptoms of hyperglycemia or hyperglycemic crisis, a random glucose >/= 200 mg/dl is diagnostic for diabetes. In the absence of unequivocal hyperglycemia, results should be confirmed by repeat testing. The classification and Diagnosis of Diabetes Diabetes Care 202; 46: S19-S40. Current interpretive data was last revised 2022. Calcium 8.9 8.5 - 10.3 mg/dL [facility] Bilirubin, total 0.3 0.1 - 1.2 mg/dL [facility] Protein, pl 7.1 6.5 - 8.5 g/dL [facility] Albumin 4.7 3.5 - 5.0 g/dL [facility] Alk phos 99 40 - 130 Units/L [facility] ALT 25 7 - 45 Units/L [facility] AST 18 10 - 45 Units/L [facility] Blood 12/10/2024 9:58 AM CDT 12/10/2024 10:19 AM CDT us Ricardo Raymundo MD LAB BLOOD ORDERABLES Final Result [facility] Department [place] [address] * XR Finger 4th Ring Left (10/03/2024 12:37 PM CDT) Anatomical Region Laterality Modality Upper Extremities, Hand, Fingers Left Computed Radiography 10/03/2024 12:4 7 PM CDT Impressions 10/03/2024 12:47 PM CDT Left ring finger soft tissue swelling. Electronically signed by: Markus Astudillo M.D. Narrative 10/03/2024 12:47 PM CDT EXAMINATION: XR FINGER 4TH RING LEFT HISTORY: Ring finger pain FINDINGS: 3 views of the left ring finger were performed with comparison made to 09/19/2024. Alignment of the finger is normal. 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 There is no acute fracture. There is no osseous erosion or periosteal bone formation. Procedure Note Markus Astudillo MD PhD - 10/03/2024 EXAMINATION: XR FINGER 4TH RING LEFT HISTORY: Ring finger pain FINDINGS: 3 views of the left ring finger were performed with comparison made to 09/19/2024. Alignment of the finger is normal. 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 There is no acute fracture. There is no osseous erosion or periosteal bone formation. IMPRESSION: Left ring finger soft tissue swelling. Electronically signed by: Markus Astudillo M.D. Khushboo Jeffries MD IMG XR PROCEDURES Final Result * Incision and Drainage (09/19/2024 6:52 PM CDT) Narrative Rita Khan PA - 09/19/2024 6:52 PM CDT Rita Khan PA 09/19/2024 6:52 PM Incision and Drainage Date/Time: 09/19/2024 6:52 PM Performed by: Rita Khan PA Authorized by: Stanislav Brian MD Type: Abscess Location: Upper extremity Upper extremity location: L ring finger Skin preparation: Antiseptic wash Anesthesia method: Nerve block Block anesthetic: Lidocaine 1% Block injection procedure: Anatomic landmarks identified, introduced needle and incremental injection Incision types: Stab incision Scalpel blade: 10 Drainage: Purulent Drainage amount: Moderate Packing materials: None Patient tolerance of procedure: Tolerated well, no immediate complications Stanislav Brian MD IN CLINIC/BEDSIDE ORDERABLES Final Result * (ABNORMAL) Aerobic culture and gram stain Abscess Finger (09/19/2024 5:01 PM CDT) Direct Specimen Exam Stain: Moderate polymorphonuclear leukocytes seen. Abundant Gram Positive Cocci Abundant Gram Negative Bacilli Comment:Testing performed by : [facility], [address] [place] [address]., [id number] Report Final Report: Moderate Mixed microorganisms. Includes the following: Rare Staphylococcus aureus Methicillin susceptible (MSSA) by penicillin binding protein 2a (PBP2a) testing. (.) [facility] ([place]) Comment:Testing performed by : [facility], [address] [place] [address]., [phone] Organism STAPHYLOCOCCUS AUREUS [facility]HELSEA JARVIS ([place]) Organism MIXED MICROORGANISMS. [facility]HELSEA JARVIS ([place]) Abscess (Finger) 09/19/2024 5:01 PM CDT 09/19/2024 8:30 PM CDT Narrative CHELSEA JARVIS ([place]) - 09/24/2024 1:46 PM CDT Specimen received on an ESwab. Testing performed by [facility] ([phone]) Specimens submitted from normally sterile body sites will have all bacterial morphotypes identified. Specimens that contain grossly mixed jordana and/or are from body sites that are not normally sterile will be examined for Staphylococcus aureus, Pseudomonas aeruginosa, beta-hemolytic strep, vancomycin-resistant Enterococcus and fungus. If any of these are isolated, the organism will be reported. Current interpretive data was last revised on 2016. Organism Antibiotic Method Susceptibility Staphylococcus aureus Vancomycin INTERPRETATION Susceptible Staphylococcus aureus Trimethoprim with Sulfamethoxazole INTERPRETATION Susceptible Staphylococcus aureus Linezolid INTERPRETATION Susceptible Staphylococcus aureus Doxycycline INTERPRETATION Susceptible Staphylococcus aureus Clindamycin INTERPRETATION Susceptible Staphylococcus aureus Erythromycin INTERPRETATION Susceptible Staphylococcus aureus Oxacillin INTERPRETATION Susceptible Staphylococcus aureus Cefazolin INTERPRETATION Susceptible Staphylococcus aureus Ceftriaxone INTERPRETATION Susceptible Rita STALLINGS LAB MICROBIOLOGY - GENERAL ORDE RABLES Final Result [facility] [place]) 1 [facility] [place] [address] * Sepsis Lactate w/ Reflex (09/19/2024 2:37 PM CDT) Sepsis Lactate 0.9 0.7 - 2.0 mmol/L Blood 09/19/2024 2:37 PM CDT 09/19/2024 2:45 PM CDT Rita STALLINGS LAB BLOOD ORDERABLES Final Resu lt Performing Organization Address City/[facility]/ZIP Co de Phone Number [facility] ([place]) 1 [facility] [place] [address] * eGFR (09/19/2024 2:37 PM CDT) eGFR >90 >=60 mL/min/1. 73 m2 Comment: Interpretive Data Reference Interval Normal >/= 90 mL/min/1.73m2 Mildly decreased* 60 - 89 mL/min/1.73m2 Mildly to moderately decreased 45 - 59 mL/min/1.73m2 Moderately to severely decreased 30 - 44 mL/min/1.73m2 Severely decreased 15 - 29 mL/min/1.73m2 Kidney Failure < 15 mL/min/1.73m2 *Relative to young adult level Estimated glomerular filtration rate is determined by the 2020 CKD-EPI equation recommended by the National Kidney Foundation (A Unifying Approach to GFR Estimation: Recommendations of the NKF-ASK Task Force on Reassessing the Inclusion of Race in Diagnosing Kidney Disease, JASN 2020). The CKD-EPI equation should not be used for patients with unstable renal function and has not been validated in children and those over 70. Current interpretive data was last reviewed 2020. Blood 09/19/2024 2:37 PM CDT 09/19/2024 2:45 PM CDT us Rita STALLINGS LAB BLOOD ORDERABLES Final Resu lt [facility] ([place]) 1 [facility] Department [place] [address] * (ABNORMAL) Differential, auto (09/19/2024 2:37 PM CDT) Neutrophil abs 7.19(H) 1.50 - 6.50 K/cumm Imm gran abs 0.03 0.00 - 0.10 K/cumm [facility] ([place]) Lymphocyte abs 1.73 0.80 - 3.30 K/cumm [facility] ([place]) Monocyte abs 0.57 0.20 - 0.80 K/cumm [facility] ([place]) Eosinophil abs 0.08 0.00 - 0.50 K/cumm [facility] ([place]) Basophil abs 0.02 0.00 - 0.10 K/cumm [facility] ([place]) Neutrophil pct 74.8 % [facility] ([place]) Comment: Interpretive Data Percent cell count reference ranges are not reported, since discordance with absolute values may lead to misinterpretation of CBC data. Current Interpretive Data was last revised on 2017. Imm gran pct 0.3 % [facility] ([place]) Comment: Interpretive Data Percent cell count reference ranges are not reported, since discordance with absolute values may lead to misinterpretation of CBC data. Current Interpretive Data was last revised on 2017. Lymphocyte pct 18.0 % [facility] ([place]) Comment: Interpretive Data Percent cell count reference ranges are not reported, since discordance with absolute values may lead to misinterpretation of CBC data. Current Interpretive Data was last revised on 2017. Monocyte pct 5.9 % [facility] ([place]) Comment: Interpretive Data Percent cell count reference ranges are not reported, since discordance with absolute values may lead to misinterpretation of CBC data. Current Interpretive Data was last revised on 2017. Eosinophil pct 0.8 % [facility] ([place]) Comment: Interpretive Data Percent cell count reference ranges are not reported, since discordance with absolute values may lead to misinterpretation of CBC data. Current Interpretive Data was last revised on 2017. Basophil pct 0.2 % [facility] ([place]) Comment: Interpretive Data Percent cell count reference ranges are not reported, since discordance with absolute values may lead to misinterpretation of CBC data. Current Interpretive Data was last revised on 2017. Blood 09/19/2024 2:37 PM CDT 09/19/2024 2:45 PM CDT us Rita STALLINGS LAB BLOOD ORDERABLES Final Resu lt [facility] ([place]) 1 [facility] Department [place] [address] * CBC with auto differential (09/19/2024 2:37 PM CDT) WBC 9.62 3.80 - 9.90 K/cumm Hgb 12.6 11.9 - 15.5 g/dL [facility] ([place]) Hct 38.9 35.6 - 45.5 % [facility] ([place]) Plt 217 150 - 400 K/cumm [facility] ([place]) MPV 10.4 9.1 - 12.3 fL [facility] ([place]) RBC 4.25 3.90 - 5.20 M/cumm [facility] ([place]) MCV 91.5 81.3 - 96.4 fL [facility] ([place]) MCH 29.6 27.1 - 33.3 pg [facility] ([place]) MCHC 32.4 32.3 - 35.7 g/dL [facility] ([place]) RDW CV 13.4 11.1 - 14.9 % [facility] ([place]) RDW SD 45.0 35.7 - 48.1 fL [facility] ([place]) NRBC abs 0.00 0.00 - 0.01 K/cumm [facility] ([place]) Blood 09/19/2024 2:37 PM CDT 09/19/2024 2:45 PM CDT Rita STALLINGS LAB BLOOD ORDERABLES Final Resu lt CHELSEA JARVIS ([place]) 1 [facility] Department [place] [address] * Blood culture Blood Peripheral (09/19/2024 2:37 PM CDT) Report Final Report: No growth Comment:Testing performed by : [facility], 1 [facility], [place]., [address] Blood (Peripheral) 09/19/2024 2:37 PM CDT 09/19/2024 8:10 PM CDT Narrative CHELSEA JARVIS ([place]) - 09/24/2024 7:00 AM CDT From a different site than #1. Draw Blood cultures before administration of Antibiotics Collection->Peripheral 1. Blood cultures are incubated for 4 days on a continuously monitored blood culture system. The first report of a negative culture is issued within 24 hours of receipt of the specimen in the laboratory. 2. Positive culture results are reported as soon as they are detected. 3. The most important factor for detection of microbes in the setting of bloodstream infection is the volume of blood submitted for culture. Failure to collect an optimal blood volume can result in false negative blood cultures. 4. For pediatric patients, the recommended blood volume to collect follows a weight based strategy. See the electronic test catalog for collection instructions. 5. For positive blood cultures, a rapid molecular test may be performed for organism identification using the karsten [employer]lex blood culture identification panel for gram positive (BCID-GP) and gram negative (BCID-GN) organisms. This nucleic acid amplification test detects microbial DNA in positive blood culture broth. This assay has been cleared by the [place] Food and Drug Administration and its performance characteristics have been verified by the [facility]. For questions about this culture, contact the Microbiology Laboratory at [phone]. Interpretive data was last revised on 23. Rita STALLINGS LAB MICROBIOLOGY - GENERAL ORDE RABLES Final Result Performing Organization Address City/[facility]/ZIP Co de Phone Number CHELSEA JARVIS ([place]) 1 [facility] Department [place] [address] * Blood culture Blood Peripheral (09/19/2024 2:37 PM CDT) Report Final Report: No growth Comment:Testing performed by : [facility], [address] [place]., [address] Blood (Peripheral) 09/19/2024 2:37 PM CDT 09/19/2024 8:10 PM CDT Narrative CHELSEA JARVIS ([place]) - 09/24/2024 7:00 AM CDT Draw Blood cultures before administration of Antibiotics Collection->Peripheral 1. Blood cultures are incubated for 4 days on a continuously monitored blood culture system. The first report of a negative culture is issued within 24 hours of receipt of the specimen in the laboratory. 2. Positive culture results are reported as soon as they are detected. 3. The most important factor for detection of microbes in the setting of bloodstream infection is the volume of blood submitted for culture. Failure to collect an optimal blood volume can result in false negative blood cultures. 4. For pediatric patients, the recommended blood volume to collect follows a weight based strategy. See the electronic test catalog for collection instructions. 5. For positive blood cultures, a rapid molecular test may be performed for organism identification using the karsten ePlex blood culture identification panel for gram positive (BCID-GP) and gram negative (BCID-GN) organisms. This nucleic acid amplification test detects microbial DNA in positive blood culture broth. This assay has been cleared by the [place] Food and Drug Administration and its performance characteristics have been verified by the [facility]. For questions about this culture, contact the Microbiology Laboratory at [phone]. Interpretive data was last revised on 23. Rita STALLINGS LAB MICROBIOLOGY - GENERAL ORDJackson [place] Final Result Performing Organization Address City/[facility]/ZIP Co de Phone Number CHELSEA JARVIS (GISELA) 1 [facility] Department [place] [address] * Comprehensive metabolic panel (09/19/2024 2:37 PM CDT) Sodium 144 135 - 145 mmol/L [facility] ([facility]) Potassium, pl 3.7 3.3 - 4.9 mmol/L [facility] ([place]) Chloride 104 97 - 110 mmol/L [facility] ([place]) CO2 26 22 - 32 mmol/L [facility] ([place]) Anion gap 14 2 - 15 mmol/L [facility] ([place]) BUN 6 6 - 25 mg/dL [facility] ([place]) Creatinine 0.61 0.60 - 1.10 mg/dL [facility] ([place]) Glucose 113 70 - 199 mg/dL [facility] ([place]) Comment: Interpretive Data Fasting glucose >/= 126 mg/dl is diagnostic for diabetes. Fasting is defined as no caloric intake for at least 8 hours. Fasting glucose between 100 mg/dl to 125 mg/dl is diagnostic of prediabetes. In a patient with classic symptoms of hyperglycemia or hyperglycemic crisis, a random glucose >/= 200 mg/dl is diagnostic for diabetes. In the absence of unequivocal hyperglycemia, results should be confirmed by repeat testing. The classification and Diagnosis of Diabetes Diabetes Care 202; 46: S19-S40. Current interpretive data was last revised 2022. Calcium 9.6 8.5 - 10.3 mg/dL [facility] (GISELA) Bilirubin, total 0.4 0.1 - 1.2 mg/dL [facility] ([place]) Protein, pl 6.9 6.5 - 8.5 g/dL [facility] ([place]) Albumin 4.2 3.5 - 5.0 g/dL [facility] ([place]) Alk phos 102 40 - 130 Units/L [facility] ([place]) ALT 18 7 - 45 Units/L [facility] ([place]) AST 18 10 - 45 Units/L [facility] ([place]) Blood 09/19/2024 2:37 PM CDT 09/19/2024 2:45 PM CDT us Rita [facility] BLOOD ORDERABLES Final Resu lt [facility] (GISELA) [facility] Department [place] [address] * XR Hand Left 3 or More Views (09/19/2024 2:31 PM CDT) Anatomical Region Laterality Modality Upper Extremities, Hand Left Computed Radiography 09/19/2024 3:30 PM CDT Narrative 09/19/2024 3:34 PM CDT EXAM DESCRIPTION: XR HAND LEFT 3 OR MORE VIEWS REASON FOR STUDY: Wound and swelling Pt has had swelling to her left 4th digit x 2days. Pt reports she was prescribed oral antibiotics but has not started taking them. Pt denies chills or fevers and denies N/V/D TECHNIQUE: 3 radiographic view(s) of the hand . COMPARISON: No comparison FINDINGS: BONES/JOINTS: There is no acute fracture, malalignment or osseous abnormality. The joint spaces are normal. SOFT TISSUES: Focal significant soft tissue swelling over the dorsal 4th digit. No soft tissue gas or retained foreign density. IMPRESSION: No acute osseous abnormality. Focal soft tissue swelling over the dorsal 4th digit. No soft tissue gas or retained foreign density. THIS IS AN ELECTRONICALLY VERIFIED FINAL REPORT 09/19/2024 3:34 PM - Electronically signed by Hermann Snell M.D. LC: LYN Report ID: [id number] Reading Location: [id number] Procedure Note Zita Snell MD - 09/19/2024 EXAM DESCRIPTION: XR HAND LEFT 3 OR MORE VIEWS REASON FOR STUDY: Wound and swelling Pt has had swelling to her left 4th digit x 2days. Pt reports she was prescribed oral antibiotics but has not started taking them. Pt denieschills or fevers and denies N/V/D TECHNIQUE: 3 radiographic view(s) of the hand . COMPARISON: No comparison FINDINGS: BONES/JOINTS: There is no acute fracture, malalignment or osseousabnormality. The joint spaces are normal. SOFT TISSUES: Focal significant soft tissue swelling over the dorsal 4th digit. No soft tissue gas or retained foreign density. IMPRESSION: No acute osseous abnormality. Focal soft tissue swelling over the [id number] digit. No soft tissue gas or retained foreign density. THIS IS AN ELECTRONICALLY VERIFIED FINAL REPORT 09/19/2024 3:34 PM - Electronically signed by Hermann Snell M.D. LC: LYN Report ID: [id number] Reading Location: [id number] Rita STALLINGS IMG XR PROCEDURES Final Result * Screening Mammogram Bilateral W Brian (08/27/2024 9:11 AM CDT) Anatomical Region Laterality Modality Breast Bilateral Mammography Impressions 08/28/2024 3:00 PM CDT Bilateral No evidence of malignancy in either breast. OVERALL BI-RADS FINAL ASSESSMENT: 1 - Negative RECOMMENDATION: Recommend bilateral annual screening mammography. Narrative 08/28/2024 3:00 PM CDT EXAMINATION: Screening Mammogram Bilateral W Brian: 08/27/2024 COMPARISON: Relevant prior studies available at the time of interpretation were reviewed, including the most recent mammogram on: 04/26/2022. TECHNIQUE: Mammography was performed with 2D and digital breast tomosynthesis (DBT) images. CAD was utilized. BREAST PARENCHYMAL COMPOSITION: There are scattered areas of fibroglandular density. FINDINGS: Bilateral There is no suspicious mass, calcification, or architectural distortion in either breast. Result [facility] Self Screening Mammogram IMG MAMMO PROCEDURES Fi nal Result * Pap and High Risk HPV and Genotyping (Cytology Component) (12/06/2022 10:50 AM CDT) Thin prep (Pap test) 12/06/2022 10:50 AM CDT 12/06/2022 10:50 AM CDT Narrative PATHOLOGY CH - 12/08/2022 11:05 AM CDT [facility] Department of Pathology [address] [place], [place] [id number] Final Report with Addendum Note to Patients: This report may contain a detailed description of human tissue sent by a health care provider to the laboratory for pathologic evaluation. The content of this report is essential for diagnosis and may provide important critical findings. This information may be unfamiliar to patients to review without a medical professional present. It is advised that the patient review this report in the presence of a health care provider who can answer questions and explain the details. Patient Name: MARTHA LOOMIS Address: [address] [place] [address] Gender: F : 1975 (Age: 47) Service: Location: [facility] : [id number] [facility] #: [id number] Patient Type: SPECIMEN Taken: 12/06/2022 Received: 12/06/2022 Accessioned:: 12/07/2022 Reported: 12/08/2022 Physician(s): Malka Arredondo D.O. Diagnosis: SOURCE OF SPECIMEN SCREENING THIN PREP IMAGED PAP w/ HPV: STATEMENT OF ADEQUACY - Satisfactory for evaluation; endocervical/transformation zone component present GENERAL CATEGORIZATION: - Negative for intraepithelial lesion or malignancy GRUPO Sargent(ASCP) Report Electronically Reviewed and Signed Out By GRUPO Sargent(ASCP) 12/08/2022 11:05:14Addenda: HPV Test Interpretation (Normal-Negative for High Risk HPV) HPV HR 16- Not detected HPV HR 18-Not detected HPV HR non 16/18- Not detected Interpretive Data Nucleic acid amplification for detection of high-risk Human Papilloma virus (HPV) is performed by the Dona Karsten 6800 HPV test. This assay specifically detects HPV- 16 and HPV-18 genotypes. The following HPV genotypes are detected as high-risk HPV: HPV-31, 33, 35, 39, 45, 51, 52, 56, 58, 59, 66, and 68. This assay has been approved by the [place] Food and Drug Administration for detection of HPV in cervical specimens collected by a physician using an endocervical brush/spatula or cervical broom and placed in the ThinPrep Pap Test PreservCyt collection containers. The performance characteristics of this test have been verified by the [facility] laboratory. Correlate with reported cytology results, as applicable. Interpretive data last revised 22 GRUPO Strauss(ASCP)Report Electronically Reviewed and Signed Out By GRUPO Strauss([facility]) 12/08/2022 10:40:17 Specimen(s) Received: A: SCREENING THIN PREP IMAGED PAP w/ HPV Clinical History: Contraceptive History: IUD The Pap test is a screening test used to aid in the detection of cervical cancer and its precursors. It should not be the sole means by which malignant and premalignant lesions are diagnosed. Both false negative and false positive results may occur. It also has poor sensitivity for the detection of endometrial lesions and should not be used to evaluate suspected endometrial abnormalities. For these reasons it is most important to obtain Pap tests at regular intervals. The performance characteristics of some immunohistochemical stains, fluorescence in-situ hybridization tests and immunophenotyping by flow cytometry cited in this report (if any) were determined by the Surgical Pathology Department at [facility] as part of an ongoing quality lab technician program and in compliance with federally mandated regulations drawn from the Clinical Laboratory Improvement Act of 1988 (CLIA '88). Some of these tests rely on the use of analyte specific reagents and are subject to specific labeling requirements by the US Food and Drug Administration. Such diagnostic tests may only be performed in a facility that is certified by the Department of Health and Human Services as a high complexity laboratory under CLIA '88. The FDA has determined that such clearance or approval is not necessary. This test is used for clinical purposes. It should not be regarded as investigational or for research. Nevertheless, federal rules concerning the medical use of analyte specific reagents require that the following disclaimer be attached to the report: This test was developed and its performance characteristics determined by the Surgical Pathology Department [facility]. It has not been cleared or approved by the U. S. Food and Drug Administration. Erica Beaulieu DO LAB CYTOLOGY ORDERABLES Final Result PATHOLOGY [address] [place] [address] from Last 3 Months or Most Recently Relevant to Health Maintenance Insurance FOR LIFE IDPA AETNA [facility] FOR [facility] IDMA MEDICARE [facility] FOR LIFE HUMANA CHOICE MEDICARE PPO [facility]ox [facility] Advance Directives For more information, please contact: [phone] Documents on File Type Date Recorded Patient Mechanical Engineering Draftsperson Expl anation ADVANCE DIRECTIVE 02/24/2020 10:45 AM DNR ADVANCE DIRECTIVE 08/18/2015 12:00 AM DARYA LEDEZMA * Full Code (Latest Code Status on File) Date Activated Date Inactivated Comments 01/23/2020 2:40 PM 02/20/2020 9:54 PM * LIMITED - No CPR Date Activated Date Inactivated Comments 11/19/2019 1:20 AM 11/22/2019 8:19 PM * Full Code Date Activated Date Inactivated Comments 2019 6:21 PM 11/19/2019 1:19 AM * Full Code Date Activated Date Inactivated Comments 04/13/2018 8:23 AM 04/16/2018 8:16 PM Care Teams Registered Diet Technician Relationship Specialty [place] [address] [place] [address] PCP - General Internal Medicine 12/26/23 Day, Mik Stubbs MD PhD [address] [place] [address] Referring Physician Neurology 12/07/17 Ricardo Raymundo MD [address] [place] [address] Referring Physician Neurology 12/07/17 Rufino Shaw MD [address] [place] [address] Referring Physician Pulmonary Disease 12/07/17 Rika Lala MD [address] [place] [address] Referring Physician Obstetrics and Gynecology 12/07/17 Martha Reed, SHOP HELPER [address] [place] [address] Obstetrics and Gynecology 01/25/19 Bala White MD [address] [place] [address] [address] Consulting Physician Urology 12/04/19 Silvio Garrett Jr., MD [address] [place] [address] Surgeon Orthopedic Surgery 03/31/22
--- OUTSIDE RECORDS SUMMARY | 2024-12-13 00:46 | XMS_ITS | Patient Health Record ---
Author Organization [facility] Address [address] [place], [place] [address] Care Team Providers Care Production Control Coordinating Clerk Name Role Phone CHARLIE SOLIS Unavailable [phone] Vish Scott Unavailable Unavailable Reason For Referral No Information Medications Medication SIG (Take, Route, Frequency, Duration) Notes Start Date End Date Status tizanidine 2 MG Oral Tablet ORAL tizanidine 2 MG Oral TabletOriginal Medicationtizanidine 2 MG Oral Tablet *Reorder from [facility] for eRx and Interaction Alerts* 5 Active pantoprazole 40 MG Delayed Release Oral Tablet ORAL pantoprazole 40 MG Delayed Release Oral TabletOriginal Medicationpantoprazole 40 MG Delayed Release Oral Tablet *Reorder from [facility] for [facility] and Interaction Alerts* 5 Active levothyroxine sodium 0.088 MG Oral Tablet [Synthroid] ORAL levothyroxine sodium 0.088 MG Oral Tablet [Synthroid]Original Medicationlevothyroxine sodium 0.088 MG Oral Tablet [Synthroid] *Reorder from [facility] and Interaction Alerts* 5 Active fingolimod 0.5 MG Oral Capsule [Gilenya] ORAL fingolimod 0.5 MG Oral Capsule [Gilenya]Original Medicationfingolimod 0.5 MG Oral Capsule [Gilenya] *Reorder from [facility] for [facility] and Interaction Alerts* 5 Active ergocalciferol 0.025 MG Oral Capsule ORAL ergocalciferol 0.025 MG Oral CapsuleOriginal Medicationergocalciferol 0.025 MG Oral Capsule *Reorder from [facility] for eRx and Interaction Alerts* 5 Active duloxetine 60 MG Delayed Release Oral Capsule ORAL duloxetine 60 MG Delayed Release Oral CapsuleOriginal Medicationduloxetine 60 MG Delayed Release Oral Capsule *Reorder from [facility] for eRx and Interaction Alerts* 5 Active lamoTRIgine 100 MG Oral Tablet ORAL lamotrigine 100 MG Oral TabletOriginal Medicationlamotrigine 100 MG Oral Tablet *Reorder from [facility] for [facility]Rx and Interaction Alerts* 5 Active Baclofen 10 MG Oral Tablet ORAL baclofen 10 MG Oral TabletOriginal Medicationbaclofen 10 MG Oral Tablet *Reorder from [facility] for eRx and Interaction Alerts* 5 Active Social History Social History Additional Details Category Social Info Options Details Migrated Social History Migrated Social History History of tobacco use : , Smoking Status : Never smoked Plan Of Treatment No Information Insurance Providers Payer Name Payer Address Payer Phone Subscriber Number Group Number Insured Name Patient Relationship to Insured Coverage Start Date Coverage End Date Medicare Part B [place] [address] [place] [address] [id number] HARPER LOOMIS Self - patient is the insured [facility] [address] [place], [place] [phone] [id number] DAY LOOMIS Child - Insured has Financial Responsibility [facility] [address] [place], [place] [id number] HARPER LOOMIS Self - patient is the insured
--- OUTSIDE RECORDS SUMMARY | 2024-12-13 00:46 | XMS_ITS | Clinical Summary ---
Author Organization [facility] Address [address] [place] [address] Phone Care Team Providers Care Field Software Engineer Name Role Phone Alejandro Desouza MD Primary Care Provider [phone] Dima Campo MD Unavailable David Rapp MD Unavailable Allergies No known active allergies Medications HYDROcodone-marguerite taminophen (NORCO) 5-325 MG TabletIndicatio ns:Closed fracture of distal fibula,Closed fracture of proximal fibula,Closed tibia fracture Take 1 Tablet by mouth every 6 hours as needed for Moderate or more severe pain. 20 Tablet 3 Active Additional Information Patient not taking.Reported on 04/23/2024 apixaban (ELIQUIS) 5 MG Tablet Take 5 mg by mouth 2 times daily. 1 Active baclofen (LIORESAL) 10 MG Tablet Take 10 mg by mouth 3 times daily. 8 Active Benzonatate 200 MG Capsule Take 200 mg by mouth 3 times daily. Active Cetirizine HCl 10 MG Chewable Tablet Take 10 mg by mouth daily. Active docusate sodium 100 MG Capsule Take 100 mg by mouth as needed. Active famotidine (PEPCID) 20 MG Tablet Take 20 mg by mouth. 4 Active ferrous sulfate 325 (65 Fe) MG Tablet Take 325 mg by mouth 3 times daily. 8 Active lamoTRIgine (LAMICTAL) 150 MG Tablet Take 150 mg by mouth 2 times daily. 0 Active levothyroxine (SYNTHROID) 100 MCG Tablet Take 1 Tablet by mouth every morning. 1 Active Loperamide HCl (IMODIUM) 2 MG Tablet Take 2 mg by mouth. Active Kesimpta 20 MG/0.4ML Solution Auto-injector 20 mg by Subcutaneous route. Active oxybutynin (DITROPAN-XL) 10 MG TABLET SR 24 HR Take 10 mg by mouth. 4 Active PARoxetine (PAXIL) 40 MG Tablet 4 Active tiZANidine (ZANAFLEX) 2 MG Tablet Take 1 mg by mouth. 0 Active CRANBERRY PO Take 450 mg by mouth. Active ergocalciferol (VITAMIN D) 15582 UNIT Capsule Take 50,000 Units by mouth. Active fluticasone (FLONASE) 50 MCG/ACT Suspension 1 Rex by Nasal route daily. Use in each nostril as directed. Active guaiFENesin (ROBITUSSIN) 100 MG/5ML Liquid Take 200 mg by mouth every 4 hours as needed. Active magnesium hydroxide (Milk of Magnesia) 400 MG/5ML Suspension Take 30 mL by mouth daily as needed. Active polyethylene glycol (MiraLax) 17 g Pack Take 17 g by mouth daily. Dissolve in 4-8 oz of liquid. Active Multiple Vitamin (MULTI-VITAMIN PO) Take by mouth. Activ e nystatin 453711 UNIT/GM Powder Apply 3 times daily. Apply to affected area as directed. Active pregabalin (LYRICA) 100 MG Capsule Take 100 mg by mouth 2 times daily. Active albuterol 108 (90 Base) MCG/ACT Aerosol Solution 4 Active budesonide-form oterol fumarate (SYMBICORT) 80-4.5 MCG/ACT Aerosol take 2 Puffs by inhalation. Active B Complex Vitamins (B COMPLEX PO) Take by mouth. Act martín lidocaine (LIDODERM) 5 % Patch 1 Patch by Transdermal route every 24 hours. Active Active Problems Problem Noted Date Diagnosed Date Chronic cough 04/23/2024 Mild intermittent asthma without complication Anxiety 04/23/2024 Multiple sclerosis 04/23/2024 Pulmonary embolism and infarction 04/23/2024 Family History Medical History Relation Name Comments No Known Problems Daughter Congestive Heart Failure Father Diabetes Father Type II Heart Disease Father No Known Problems Half-Brother 1 No Known Problems Half-Brother 2 No Known Problems Half-Brother 3 Stroke Half-Sister 1 x3 Lupus Half-Sister 2 Thyroid Disease Half-Sister 2 No Known Problems Half-Sister 3 No Known Problems Half-Sister 4 No Known Problems Half-Sister 5 No Known Problems Maternal Grandfather Breast Cancer Maternal Grandmother Cancer Maternal Grandmother Cancer Mother Leukemia/Lymphoma Mother No Known Problems Paternal Grandfather No Known Problems Paternal Grandmother No Known Problems Son Relation Name Status Comments Daughter Alive Father Half-Brother 1 Alive Half-Brother 2 Alive Half-Brother 3 Alive Half-Sister 1 Alive Half-Sister 2 Alive Half-Sister 3 Alive Half-Sister 4 Alive Half-Sister 5 Alive Maternal Grandfather Maternal Grandmother Mother Paternal Grandfather Paternal Grandmother Son Alive Social History Tobacco Use Types Packs/Day Years Used Date Smoking Tobacco: Never Smokeless Tobacco: Never Tobacco Cessation:Counseling Given: No Alcohol Use Standard Drinks/Week Comments Never 0 (1 standard drink = 0.6 oz pur e alcohol) Sexually Active Control Partners Comments Not Currently Male Comments No Sex and Gender Information Value Date Recorded Sex Assigned at Not on file Legal Sex Female 4:47 PM CDT Gender Identity Not on file Sexual Orientation Not on file Last Filed Vital Signs Vital Sign Reading Time Taken Comments Blood Pressure 120/70 04/23/2024 1:31 PM CDT Pulse 66 04/23/2024 1:31 PM CDT Temperature 36.9 C (98.4 F) 04/23/2024 1:31 PM CDT Respiratory Rate 14 04/23/2024 1:31 PM CDT Oxygen Saturation 97% 04/23/2024 1:31 PM CDT Inhaled Oxygen Concentration - - Weight 99.8 kg (220 lb) 04/23/2024 1:31 PM CDT Height 174 cm (5' 8.5) 04/23/2024 1:31 PM CDT Body Mass Index 32.96 04/23/2024 1:31 PM CDT Plan of Treatment Health Maintenance Due Date Last Done Comments Hepatitis B Immunization (1 of 3 - 19+ 3-dose series) 11/19/1995 Pap Smear 1997 Cervical Cancer Screening (CCS) 2006 HPV/Cotest 2006 Medicare Initial AWV [id number] 05/15/2007 Cologuard 2021 Colonoscopy 2021 Colorectal Cancer Screening 2021 Immunochemical Fecal Occult Blood 2021 02/12/2020 Mammogram 04/27/2023 04/26/2022, 03/2021, 04/08/2019, Additional history exists Influenza Immunization (#1) 10/14/202409/2023, 11/30/2022, 11/22/2019, Additional history exists SARS-COV-2 Immunization ( season) 2024 12/22/2023, 12/15/2022, 06/24/2022, Additional history exists Respiratory Syncytial Virus (RSV) Immunization (Adult) (1 - 1-dose 75+ series) 11/19/2051 Hepatitis C Virus (HCV) Screening Completed 04/19/2013 DTaP/Tdap/Td Immunization Discontinued 10/25/2016, 12/2016 TdaP Immunization Completed 10/25/2016, 10/24/2016 Discussion re Starting/Frequency of Mammograms Completed 04/26/2022, 04/14/2021, 04/08/2019, Additional history exists Pneumococcal Immunization Combined Completed 11/16/2022 Human Papillomavirus (HPV) Immunization Aged Out No longer eligible based on patient's age to complete this topic Meningococcal Immunization (ACWY) Aged Out No longer eligible based on patient's age to complete this topic Rotavirus Immunization Aged Out No lo nger eligible based on patient's age to complete this topic Insurance MEDICAID [place] FOR LIFE MEDICARE C AETNA Care Teams Field Software Engineer Relationship Specialty Start Date End Date Alejandro Desouza MD [address] [place] [address] PCP - General Family Medicine 06/07/22 Dima Campo MD [address] [address] Consulting Physician Colon and Rectal Surgery 02/02/24 David Rapp MD [address] [place] [id number] Consulting Physician Pulmonary Disease 04/23/24
--- NOTE | 2024-12-13 07:19 | WPDHPUPDATE1 ---
History and Physical Update Update Date/Time: 12/13/24 07:19 History and Physical has been reviewed, including an updated exam of the patient. There are NO changes in the patient's condition. Risks, benefits, and alternatives have been discussed and questions answered. Patient agrees to proceed with procedure.
[2024-12-13 09:24] VITALS: BP 107/55; PULSE 55; RESP 16; TEMP 36.7; O2SAT 95; BMI 33.5
[2024-12-13 10:40] VITALS: BP 135/67; PULSE 55; O2SAT 98
[2024-12-13 10:50] VITALS: BP 117/64; PULSE 55; O2SAT 98
[2024-12-13] MEDS: BOTULINUM TOXIN TYPE A (*SPLP) 100 UNITS VIAL XX (10:51)
--- NOTE | 2024-12-13 10:56 | W.PM.PROC2 ---
Procedure Note - Detailed Date of Procedure 12/13/24 Pre-op Diagnosis reflex neuropathic bladder Post-op Diagnosis Same Procedure Performed Cystoscopy with injection of Botox 100 units Surgeon Bala White MD Anesthesia Local Indications This is a woman with neurogenic bladder. She is immobile due to her multiple sclerosis. She has failed anticholinergics and beta 3 agonist. She would like a Botox injection. She understands risks of bleeding, infection, lack of efficacy, urinary retention, need for repeat procedures. She agrees to proceed Description of Procedure She was correctly identified. Informed consent obtained. From the operating room. She was placed in dorsal lithotomy position. She was prepped and draped sterile fashion. Time-out performed. I drained her bladder. I then instilled local into her bladder allowed to set. I then performed cystoscopy. The bladder was drained the local. She had moderate trabeculations. No tumors or other abnormalities. Ureteral orifices were normal. I injected 100 units of Botox. 100 units in 10 cc of saline. I injected throughout the sub urothelial muscular layer. There was no significant bleeding the injection sites. The bladder was drained. She was taken to recovery room in stable condition Estimated Blood Loss 0 Drains No Packing No Pathology None sent Complications No immediate complications Condition Stable Disposition PACU
[2024-12-13 11:05] VITALS: BP 107/47; PULSE 51; RESP 14; O2SAT 100
== END 2024-12-13 11:37 | disposition home or self-care (01) ==
PROVIDERS: Visit Provider Urology
PROC: 3E0K8GC Introduction of Other Therapeutic Substance into Genitourinary Tract, Via Natural or Artificial Opening Endoscopic (ICD-10-PCS; CPT 52287; principal; 2024-12-13 11:15)
DX: N31.1 Reflex neuropathic bladder, not elsewhere classified (principal); G35.D Multiple sclerosis, unspecified
CPT/HCPCS: 52287; J0585